=== PATIENT | male | born 1960 | race Caucasian/White ===

== ENCOUNTER 2017-11-30 01:48 | Inpatient (IN) | payer OTHER ==
[~2017-11-30] VITALS: Ht 170.2 cm; Wt 96.5 kg
[~2017-11-30 01:48] MED LIST: ABILIFY5 MG PO; ACTOS30 MG PO; ALLEGRA D; ALLEGRA-D 121 TABLET PO; AMARYL4 MG PO; ASPIRIN BUFFER325 MG PO; ASPIRIN81 M1 PO; ATIVAN0.5 MG PO; ATIVAN1 MG PO; ATORVASTATIN CA10 MG PO; AVANDARYL PO; AVANDIA4 MG PO; B12 HEALTH1000 MCG/1 PO; BAYER ASPIRIN325 M1 PO; BELVIQ10 MG PO; BYETTA5 MCG/0.02 SC; FERROUS SULFATE PO; GLUCOPHAGE1000 MG PO; HYTRIN10 MG PO; IRON325 M1 PO; IRON325 MG PO; JANUVIA100 MG PO; LANTUS 10100 UNITS/ SC; LANTUS100 UNIT/1 SQ; LEVEMIR FL100 UNITS/ SC; LISINOPRIL20 MG PO; LITE COAT ASPI325 M1 PO; METFORMIN HCL1000 MG PO; OXYCONTIN10 MG PO; PRILOSEC20 MG; PRILOSEC20 MG PO; PROPRANOLOL HCL80 M1 PO; PROPRANOLOL HCL80 MG PO; PROTONIX40 MG PO; PriLOSEC PO; TERAZOSIN HCL5 MG PO; VITAMIN B12 PO; VITAMIN B12-FO1 EACH PO; VYTORIN 10-401 EACH PO; VYTORIN 10/41 TABLET PO
[2017-11-30 02:22] LABS: HEMATOCRIT 38.7 % (38.0-50.0); HEMOGLOBIN 12.9 G/DL (12.5-16.6); MCH 29.3 PG (29.0-34.0); MCHC 33.3 G/DL (30.0-36.0); PLATELET COUNT 198 K/uL (156-360); RBC DIS.WIDTH-CV 13.4 % (11.8-14.6); RBC DIS.WIDTH-SD 43.1 % (39-53); WHITE BLOOD COUNT 10.9 K/uL (4.1-10.2)
[2017-11-30 02:30] LABS: CHLORIDE 106 mEq/L (99-109); POTASSIUM 4.4 mEq/L (3.7-5.4); SODIUM 139 mEq/L (136-147)
[2017-11-30 02:32] LABS: GLUCOSE 139 mg/dL (70-99)
[2017-11-30 02:36] LABS: CREATININE 1.3 mg/dL (0.6-1.3); GFR ESTIMATE (CALCULATED) > 59 mL/min/ (58.99-99999)
[2017-11-30 02:37] LABS: UREA NITROGEN (BUN) 22 mg/dL (9-23)
[2017-11-30 02:39] LABS: LIPASE 63 U/L (1.0-51.0)
[2017-11-30 02:44] LABS: TROP-I INTERPRETATION NEGATIVE; TROPONIN-I 0.01 ng/mL (0.0-0.30)
[2017-11-30 03:56] LABS: ALBUMIN 4.4 g/dL (3.2-4.8)
[2017-11-30 03:59] LABS: TOTAL PROTEIN 7.4 g/dL (6.4-8.3)
[2017-11-30 04:02] LABS: ALKALINE PHOSPHATASE 56 IU/L (3-129)
[2017-11-30 04:04] LABS: AST (GOT) 31 IU/L (2-34); DIRECT BILIRUBIN 0.7 mg/dL (0.0-0.3)
[2017-11-30 04:05] LABS: ALT (GPT) 26 IU/L (3-49)
[2017-11-30] MEDS ORDERED: XARELTO20 MG PO (04:09)
[2017-11-30] MEDS ORDERED: METOPROLOL SUCC50 MG PO (04:11)
[2017-11-30 04:29] LABS: BASE EXCESS -4.6 mEq/L (-3 to +3); CARBOXY HGB 1.5 % (0-5); COMMENTS - BLOOD GASES C+A+; DEVICE ROOM AIR; METHEMOGLOBIN 0.8 % (0-1.5); O2 SATURATION (CALCULATED) 99.1 % (95-99); PCO2 30 mm Hg (35-45); PO2 96 mm Hg (80-100); SITE RR; pH 7.41 (7.35-7.45)
[2017-11-30 04:37] LABS: MAGNESIUM 1.6 mg/dL (1.3-2.7)
[2017-11-30 05:35] VITALS: BP 123/90
[2017-11-30 06:35] LABS: APPEARANCE CLEAR ((CLEAR)); BILIRUBIN NEGATIVE; BLOOD NEGATIVE; COLOR YELLOW ((YELLOW)); GLUCOSE (STRIP) NEGATIVE; KETONES 20; LEUKOCYTES NEGATIVE; NITRITE NEGATIVE; PROTEIN (STRIP) NEGATIVE; SPECIFIC GRAVITY 1.014 (1.000-1.030); UCUL ADDED? NO; UROBILINOGEN 0.2 MG/DL (0.2-1.0)
[2017-11-30 06:44] VITALS: BP 123/82
[2017-11-30 07:38] VITALS: BP 106/74
[2017-11-30 10:32] LABS: TROP-I INTERPRETATION NEGATIVE; TROPONIN-I < 0.01 ng/mL (0.0-0.30)
[2017-11-30 11:42] VITALS: BP 113/60
[2017-11-30 20:45] VITALS: BP 140/90
[2017-12-01] VITALS (7 sets, daily range): BP systolic 98–158; BP diastolic 62–84
[2017-12-01 05:16] LABS: BASOPHIL (%) 0.3 % (0-1); EOSINOPHIL (%) 1.3 % (0-5); EOSINOPHIL COUNT 0.1 K/uL (0-0.3); HEMATOCRIT 35.6 % (38.0-50.0); HEMOGLOBIN 11.6 G/DL (12.5-16.6); IMMATURE GRANULOCYTE (%) 0.3 % (0.0-0.7); LYMPHOCYTE (%) 28.7 % (15-42); LYMPHOCYTE COUNT 1.7 K/uL (1.0-2.8); MCH 28.6 PG (29.0-34.0); MCHC 32.6 G/DL (30.0-36.0); MCV 87.9 FL (86-99); MONOCYTE (%) 7.2 % (3-12); MONOCYTE COUNT 0.4 K/uL (0-0.8); NEUTROPHIL (%) 62.2 % (45-76); NEUTROPHIL COUNT 3.7 K/uL (1.8-6.4); PLATELET COUNT 145 K/uL (156-360); RBC DIS.WIDTH-CV 13.4 % (11.8-14.6); RBC DIS.WIDTH-SD 43.5 % (39-53); RED BLOOD COUNT 4.05 M/uL (4.00-5.50)
[2017-12-01 05:46] LABS: ALBUMIN 3.6 G/DL (3.2-4.8); ALKALINE PHOSPHATASE 43 IU/L (3-129); ALT (GPT) 16 IU/L (3-49); AST (GOT) 16 IU/L (2-34); CHLORIDE 104 MEQ/L (99-109); GFR ESTIMATE (CALCULATED) > 59 mL/min/ (58.99-99999); GLUCOSE 112 mg/dL (70-99); LIPASE 53 U/L (1.0-51.0); MAGNESIUM 1.4 mg/dl (1.3-2.7); POTASSIUM 4.2 MEQ/L (3.7-5.4); SODIUM 137 MEQ/L (136-147); TOTAL BILIRUBIN 1.8 MG/DL (0.0-1.0); TRIGLYCERIDES 89 MG/DL (Normal: <150); UREA NITROGEN (BUN) 20 mg/dL (9-23)
[2017-12-02] VITALS (8 sets, daily range): BP systolic 110–162; BP diastolic 65–99
[2017-12-02 05:36] LABS: HEMATOCRIT 36.9 % (38.0-50.0); HEMOGLOBIN 11.9 G/DL (12.5-16.6); MCH 28.7 PG (29.0-34.0); MCHC 32.2 G/DL (30.0-36.0); MCV 88.9 FL (86-99); PLATELET COUNT 154 K/uL (156-360); RBC DIS.WIDTH-CV 13.2 % (11.8-14.6); RBC DIS.WIDTH-SD 43.6 % (39-53); RED BLOOD COUNT 4.15 M/uL (4.00-5.50); WHITE BLOOD COUNT 7.6 K/uL (4.1-10.2)
[2017-12-02 06:05] LABS: CHLORIDE 106 MEQ/L (99-109); CREATININE 1.1 MG/DL (0.6-1.3); GFR ESTIMATE (CALCULATED) > 59 mL/min/ (58.99-99999); GLUCOSE 123 mg/dL (70-99); MAGNESIUM 1.5 mg/dl (1.3-2.7); SODIUM 141 MEQ/L (136-147); UREA NITROGEN (BUN) 16 mg/dL (9-23)
[2017-12-02 10:27] LABS: HEMOGLOBIN A1c (GLYCOHEMOGLOB) 6.5 % (Below 5.7)
[2017-12-03 05:06] VITALS: BP 159/92
[2017-12-03 05:45] LABS: HEMATOCRIT 34.9 % (38.0-50.0); HEMOGLOBIN 11.2 G/DL (12.5-16.6); MCH 28.7 PG (29.0-34.0); MCHC 32.1 G/DL (30.0-36.0); MCV 89.5 FL (86-99); PLATELET COUNT 146 K/uL (156-360); RBC DIS.WIDTH-CV 13.5 % (11.8-14.6); RBC DIS.WIDTH-SD 43.8 % (39-53); WHITE BLOOD COUNT 6.1 K/uL (4.1-10.2)
[2017-12-03 06:35] LABS: CHLORIDE 106 MEQ/L (99-109); CREATININE 1.3 MG/DL (0.6-1.3); GFR ESTIMATE (CALCULATED) > 59 mL/min/ (58.99-99999); GLUCOSE 177 mg/dL (70-99); MAGNESIUM 1.6 mg/dl (1.3-2.7); SODIUM 140 MEQ/L (136-147); UREA NITROGEN (BUN) 22 mg/dL (9-23)
[2017-12-03 07:27] VITALS: BP 109/74
[2017-12-03 11:41] VITALS: BP 139/86
[2017-12-03] MEDS ORDERED: DILTIAZEM 24HR240 MG PO (14:03)
[2017-12-03] MEDS ORDERED: METOPROLOL SUC100 MG PO (14:03)
[2017-12-03] MEDS ORDERED: DIGOXIN125 MCG PO (14:03)
[2017-12-03 15:09] VITALS: BP 131/73
== END 2017-12-03 17:12 | disposition home or self-care (01) | DRG 309 ==
LOC: EME 01:48 → EXP 01:48 → EDOF 04:09 → ENRESERV 04:10 → 4EAST 05:00 → ENPENDDIS 12-03 → 4EAST 12-03 17:12
PROVIDERS: Hospitalist; Internal Medicine; Physician Assistant Medical
DX: I48.0 Paroxysmal atrial fibrillation (principal); N17.9 Acute kidney failure, unspecified; E87.3 Alkalosis; I11.0 Hypertensive heart disease with heart failure; I50.9 Heart failure, unspecified; E78.5 Hyperlipidemia, unspecified; E11.9 Type 2 diabetes mellitus without complications; K21.9 Gastro-esophageal reflux disease without esophagitis; N40.0 Benign prostatic hyperplasia without lower urinary tract symptoms; E66.9 Obesity, unspecified; F41.9 Anxiety disorder, unspecified; R62.50 Unspecified lack of expected normal physiological development in childhood; F79 Unspecified intellectual disabilities; R10.9 Unspecified abdominal pain; Z79.4 Long term (current) use of insulin; Z79.82 Long term (current) use of aspirin; Z88.2 Allergy status to sulfonamides; Z79.01 Long term (current) use of anticoagulants; Z68.36 Body mass index [BMI] 36.0-36.9, adult
CPT/HCPCS: 36600; 71045; 74176; 80048; 80053; 80076; 81003; 82330; 82803; 82948; 83036; 83690; 83735; 84478; 84484; 85025; 85027; 93005; 99281; 99285; C9113; J1160; J1815; J1885; J7040; J7050; J7120

== ENCOUNTER 2017-12-06 10:14 | Emergency (ER) | payer OTHER ==
[~2017-12-06] VITALS: Ht 175.3 cm; Wt 98.0 kg
[~2017-12-06 10:14] MED LIST changes: +DIGOXIN125 MCG PO; +DILTIAZEM 24HR240 MG PO; +METOPROLOL SUC100 MG PO; +METOPROLOL SUCC50 MG PO; +XARELTO20 MG PO
[2017-12-06 10:43] LABS: BASOPHIL (%) 0.4 % (0-1); EOSINOPHIL (%) 0.5 % (0-5); HEMATOCRIT 37.6 % (38.0-50.0); HEMOGLOBIN 12.7 G/DL (12.5-16.6); IMMATURE GRANULOCYTE (%) 0.4 % (0.0-0.7); LYMPHOCYTE (%) 18.7 % (15-42); LYMPHOCYTE COUNT 1.6 K/uL (1.0-2.8); MCH 29.5 PG (29.0-34.0); MCHC 33.8 G/DL (30.0-36.0); MCV 87.2 FL (86-99); MONOCYTE (%) 7.3 % (3-12); MONOCYTE COUNT 0.6 K/uL (0-0.8); NEUTROPHIL (%) 72.7 % (45-76); NEUTROPHIL COUNT 6.2 K/uL (1.8-6.4); RBC DIS.WIDTH-CV 13.3 % (11.8-14.6); RBC DIS.WIDTH-SD 42.4 % (39-53); RED BLOOD COUNT 4.31 M/uL (4.00-5.50); WHITE BLOOD COUNT 8.6 K/uL (4.1-10.2)
[2017-12-06 10:44] LABS: PLATELET COUNT 200 K/uL (156-360)
[2017-12-06 10:50] LABS: INTER. NORMALIZED RATIO 2.3
[2017-12-06 10:52] LABS: ALBUMIN 4.1 g/dL (3.2-4.8)
[2017-12-06 10:53] LABS: CHLORIDE 105 mEq/L (99-109); PTT 37.9 SEC (25-37); SODIUM 138 mEq/L (136-147)
[2017-12-06 10:55] LABS: GLUCOSE 280 mg/dL (70-99)
[2017-12-06 10:58] LABS: ALKALINE PHOSPHATASE 56 IU/L (3-129)
[2017-12-06 10:59] LABS: CREATININE 1.4 mg/dL (0.6-1.3); GFR ESTIMATE (CALCULATED) 55 mL/min/ (58.99-99999)
[2017-12-06 11:00] LABS: AST (GOT) 21 IU/L (2-34); DIRECT BILIRUBIN 0.7 mg/dL (0.0-0.3); UREA NITROGEN (BUN) 21 mg/dL (9-23)
[2017-12-06 11:02] LABS: ALT (GPT) 22 IU/L (3-49); LIPASE 51 U/L (1.0-51.0)
[2017-12-06 11:04] LABS: TROP-I INTERPRETATION NEGATIVE; TROPONIN-I < 0.01 ng/mL (0.0-0.30)
[2017-12-06 12:09] LABS: APPEARANCE CLEAR ((CLEAR)); BILIRUBIN NEGATIVE; BLOOD NEGATIVE; COLOR YELLOW ((YELLOW)); GLUCOSE (STRIP) >=500; KETONES 5; LEUKOCYTES SMALL; NITRITE NEGATIVE; PROTEIN (STRIP) NEGATIVE; SPECIFIC GRAVITY 1.017 (1.000-1.030); UROBILINOGEN 0.2 MG/DL (0.2-1.0)
[2017-12-06 12:18] LABS: BACTERIA NONE SEEN /HPF; EPITHELIAL CELLS NONE SEEN /HPF; MUCUS 2+ /LPF; RED BLOOD CELLS NONE SEEN /HPF (0-5); UCUL ADDED? NO; WHITE BLOOD CELLS 0-5 /HPF (0-5)
[2017-12-06 16:31] VITALS: BP 102/59
== END 2017-12-06 16:34 | disposition home or self-care (01) ==
LOC: EME 10:14
PROVIDERS: Emergency Medicine
PROC: 5A2204Z Restoration of Cardiac Rhythm, Single (ICD-10-PCS; principal; 2017-12-06)
DX: I48.91 Unspecified atrial fibrillation (principal); R00.1 Bradycardia, unspecified; R94.31 Abnormal electrocardiogram [ECG] [EKG]; I10 Essential (primary) hypertension; E78.5 Hyperlipidemia, unspecified; F41.9 Anxiety disorder, unspecified; Z79.01 Long term (current) use of anticoagulants; Z79.84 Long term (current) use of oral hypoglycemic drugs; Z86.79 Personal history of other diseases of the circulatory system; Z87.19 Personal history of other diseases of the digestive system; Z86.73 Personal history of transient ischemic attack (TIA), and cerebral infarction without residual deficits; Z88.2 Allergy status to sulfonamides; Z88.8 Allergy status to other drugs, medicaments and biological substances
CPT/HCPCS: 70450; 80048; 80076; 81003; 83605; 83690; 83880; 84484; 85025; 85610; 85730; 90839; 93005; 99281; 99285; J1160; J2250; J3010; J7030

== ENCOUNTER 2017-12-08 17:32 | Inpatient (IN) | payer OTHER ==
[~2017-12-08] VITALS: Ht 170.2 cm; Wt 95.0 kg
[2017-12-08 18:19] LABS: HEMATOCRIT 36.2 % (38.0-50.0); HEMOGLOBIN 12.3 G/DL (12.5-16.6); MCH 29.4 PG (29.0-34.0); MCV 86.6 FL (86-99); PLATELET COUNT 181 K/uL (156-360); RBC DIS.WIDTH-CV 13.3 % (11.8-14.6); RBC DIS.WIDTH-SD 41.6 % (39-53); RED BLOOD COUNT 4.18 M/uL (4.00-5.50); WHITE BLOOD COUNT 8.1 K/uL (4.1-10.2)
[2017-12-08 18:30] LABS: CHLORIDE 109 mEq/L (99-109); POTASSIUM 4.1 mEq/L (3.7-5.4); SODIUM 141 mEq/L (136-147)
[2017-12-08 18:31] LABS: GLUCOSE 155 mg/dL (70-99)
[2017-12-08 18:35] LABS: CREATININE 1.1 mg/dL (0.6-1.3); GFR ESTIMATE (CALCULATED) > 59 mL/min/ (58.99-99999)
[2017-12-08 18:36] LABS: UREA NITROGEN (BUN) 15 mg/dL (9-23)
[2017-12-08 18:39] LABS: TROP-I INTERPRETATION NEGATIVE; TROPONIN-I < 0.01 ng/mL (0.0-0.30)
[2017-12-08] MEDS ORDERED: AMIODARONE HCL200 MG PO (20:42)
[2017-12-08] MEDS ORDERED: CARTIA XT240 MG PO (22:57)
[2017-12-08] MEDS ORDERED: METOPROLOL SUCC50 MG PO (22:57)
[2017-12-08] MEDS ORDERED: METFORMIN HCL1000 MG PO (22:57)
[2017-12-08] MEDS ORDERED: GLIMEPIRIDE4 MG PO (22:57)
[2017-12-08] MEDS ORDERED: PIOGLITAZONE HC15 MG PO (22:58)
[2017-12-09 01:30] VITALS: BP 136/98
[2017-12-09 05:23] LABS: TROP-I INTERPRETATION NEGATIVE; TROPONIN-I 0.01 ng/mL (0.0-0.30)
[2017-12-09 07:43] VITALS: BP 149/95
[2017-12-09 11:49] VITALS: BP 97/69
[2017-12-09 12:05] LABS: TROP-I INTERPRETATION NEGATIVE; TROPONIN-I 0.02 ng/mL (0.0-0.30)
[2017-12-09 15:23] VITALS: BP 108/67
[2017-12-09 20:13] VITALS: BP 115/74
[2017-12-10 00:32] VITALS: BP 127/81
[2017-12-10 04:21] VITALS: BP 135/99
[2017-12-10 05:25] LABS: HEMATOCRIT 39.9 % (38.0-50.0); HEMOGLOBIN 13.2 G/DL (12.5-16.6); MCH 28.9 PG (29.0-34.0); MCHC 33.1 G/DL (30.0-36.0); MCV 87.3 FL (86-99); PLATELET COUNT 194 K/uL (156-360); RBC DIS.WIDTH-CV 13.5 % (11.8-14.6); RBC DIS.WIDTH-SD 43.1 % (39-53); RED BLOOD COUNT 4.57 M/uL (4.00-5.50); WHITE BLOOD COUNT 6.7 K/uL (4.1-10.2)
[2017-12-10 05:56] LABS: ALBUMIN 3.8 G/DL (3.2-4.8); ALKALINE PHOSPHATASE 43 IU/L (3-129); ALT (GPT) 17 IU/L (3-49); AST (GOT) 15 IU/L (2-34); CHLORIDE 107 MEQ/L (99-109); GFR ESTIMATE (CALCULATED) > 59 mL/min/ (58.99-99999); GLUCOSE 149 mg/dL (70-99); MAGNESIUM 1.7 mg/dl (1.3-2.7); POTASSIUM 3.9 MEQ/L (3.7-5.4); SODIUM 141 MEQ/L (136-147); TOTAL BILIRUBIN 1.6 MG/DL (0.0-1.0); TOTAL PROTEIN 6.1 G/DL (6.4-8.3); UREA NITROGEN (BUN) 13 mg/dL (9-23)
[2017-12-10 07:35] VITALS: BP 150/95
[2017-12-10 11:14] VITALS: BP 109/77
[2017-12-10 16:43] VITALS: BP 128/71
[2017-12-10 21:27] VITALS: BP 120/75
[2017-12-11 00:30] VITALS: BP 132/71
[2017-12-11 04:30] VITALS: BP 129/70
[2017-12-11 05:52] LABS: BASOPHIL (%) 0.4 % (0-1); EOSINOPHIL (%) 1.7 % (0-5); EOSINOPHIL COUNT 0.1 K/uL (0-0.3); HEMATOCRIT 38.3 % (38.0-50.0); HEMOGLOBIN 12.4 G/DL (12.5-16.6); IMMATURE GRANULOCYTE (%) 0.3 % (0.0-0.7); LYMPHOCYTE (%) 28.3 % (15-42); MCH 28.7 PG (29.0-34.0); MCHC 32.4 G/DL (30.0-36.0); MCV 88.7 FL (86-99); MONOCYTE (%) 9.9 % (3-12); MONOCYTE COUNT 0.7 K/uL (0-0.8); NEUTROPHIL (%) 59.4 % (45-76); NEUTROPHIL COUNT 4.1 K/uL (1.8-6.4); PLATELET COUNT 183 K/uL (156-360); RBC DIS.WIDTH-CV 13.6 % (11.8-14.6); RBC DIS.WIDTH-SD 44.2 % (39-53); RED BLOOD COUNT 4.32 M/uL (4.00-5.50)
[2017-12-11 06:06] LABS: CHLORIDE 105 MEQ/L (99-109); CREATININE 1.1 MG/DL (0.6-1.3); GFR ESTIMATE (CALCULATED) > 59 mL/min/ (58.99-99999); GLUCOSE 160 mg/dL (70-99); MAGNESIUM 1.7 mg/dl (1.3-2.7); POTASSIUM 4.1 MEQ/L (3.7-5.4); SODIUM 140 MEQ/L (136-147); UREA NITROGEN (BUN) 18 mg/dL (9-23)
[2017-12-11 06:12] LABS: ALBUMIN 3.4 G/DL (3.2-4.8); ALKALINE PHOSPHATASE 46 IU/L (3-129); ALT (GPT) 15 IU/L (3-49); AST (GOT) 14 IU/L (2-34); CHLORIDE 104 MEQ/L (99-109); CREATININE 1.1 MG/DL (0.6-1.3); GFR ESTIMATE (CALCULATED) > 59 mL/min/ (58.99-99999); GLUCOSE 157 mg/dL (70-99); POTASSIUM 4.1 MEQ/L (3.7-5.4); SODIUM 140 MEQ/L (136-147); TOTAL PROTEIN 5.7 G/DL (6.4-8.3); UREA NITROGEN (BUN) 18 mg/dL (9-23)
[2017-12-11 06:17] LABS: TOTAL BILIRUBIN 1.2 MG/DL (0.0-1.0)
[2017-12-11 06:48] LABS: DIGOXIN 0.5 ng/mL (0.8-2.0)
[2017-12-11 07:15] VITALS: BP 150/91
[2017-12-11 11:35] VITALS: BP 123/71
[2017-12-11 17:14] VITALS: BP 133/79
[2017-12-11 21:00] VITALS: BP 133/71
[2017-12-12 01:30] VITALS: BP 131/91
[2017-12-12 05:20] VITALS: BP 130/88
[2017-12-12 07:50] LABS: DIGOXIN 0.5 ng/mL (0.8-2.0)
[2017-12-12 07:51] VITALS: BP 126/79
[2017-12-12 09:11] LABS: CHLORIDE 100 MEQ/L (99-109); CREATININE 1.2 MG/DL (0.6-1.3); GFR ESTIMATE (CALCULATED) > 59 mL/min/ (58.99-99999); MAGNESIUM 1.9 mg/dl (1.3-2.7); POTASSIUM 4.5 MEQ/L (3.7-5.4); SODIUM 137 MEQ/L (136-147); UREA NITROGEN (BUN) 26 mg/dL (9-23)
[2017-12-12 09:18] LABS: GLUCOSE 236 mg/dL (70-99)
[2017-12-12] MEDS ORDERED: DIGOXIN250 MCG PO (10:49)
[2017-12-12] MEDS ORDERED: TRAZODONE HCL50 MG PO (10:50)
[2017-12-12] MEDS ORDERED: MAG-OXIDE400 MG PO (10:50)
[2017-12-12] MEDS ORDERED: DILTIAZEM 24HR240 MG PO (10:50)
[2017-12-12 11:08] VITALS: BP 103/62
== END 2017-12-12 15:47 | disposition home health service (06) | DRG 310 ==
LOC: EME 17:32 → EDOF 12-09 00:15 → 4EAST 12-09 00:15 → EDOF 12-09 00:15 → ENRESERV 12-09 00:19 → 4EAST 12-09 01:30 → ENPENDDIS 12-12 → 4EAST 12-12 15:47
PROVIDERS: Family Medicine; Hospitalist; Physician Assistant Medical
DX: I48.1 Persistent atrial fibrillation (principal); G47.00 Insomnia, unspecified; F79 Unspecified intellectual disabilities; R62.50 Unspecified lack of expected normal physiological development in childhood; I10 Essential (primary) hypertension; F41.9 Anxiety disorder, unspecified; E78.5 Hyperlipidemia, unspecified; E11.9 Type 2 diabetes mellitus without complications; K21.9 Gastro-esophageal reflux disease without esophagitis; N40.0 Benign prostatic hyperplasia without lower urinary tract symptoms; Z86.73 Personal history of transient ischemic attack (TIA), and cerebral infarction without residual deficits; Z88.2 Allergy status to sulfonamides; Z79.4 Long term (current) use of insulin; Z79.01 Long term (current) use of anticoagulants
CPT/HCPCS: 71045; 80048; 80053; 80162; 82948; 83735; 84484; 85025; 85027; 93005; 99281; 99285; G0378; J1160; J7030; J7050

== ENCOUNTER 2017-12-20 21:55 | Inpatient (IN) | payer OTHER ==
[~2017-12-20] VITALS: Ht 170.2 cm; Wt 93.7 kg
[~2017-12-20 21:55] MED LIST changes: +AMIODARONE HCL200 MG PO; +CARTIA XT240 MG PO; +DIGOXIN250 MCG PO; +GLIMEPIRIDE4 MG PO; +MAG-OXIDE400 MG PO; +PIOGLITAZONE HC15 MG PO; +TRAZODONE HCL50 MG PO
[2017-12-20 22:39] LABS: INTER. NORMALIZED RATIO 2.3
[2017-12-20 22:42] LABS: PTT 37.8 SEC (25-37)
[2017-12-20 22:43] LABS: HEMATOCRIT 35.9 % (38.0-50.0); HEMOGLOBIN 12.2 G/DL (12.5-16.6); MCH 29.5 PG (29.0-34.0); MCV 86.7 FL (86-99); PLATELET COUNT 175 K/uL (156-360); RBC DIS.WIDTH-CV 13.2 % (11.8-14.6); RBC DIS.WIDTH-SD 41.4 % (39-53); RED BLOOD COUNT 4.14 M/uL (4.00-5.50); WHITE BLOOD COUNT 7.5 K/uL (4.1-10.2)
[2017-12-20 22:52] LABS: CHLORIDE 105 mEq/L (99-109); POTASSIUM 4.3 mEq/L (3.7-5.4); SODIUM 138 mEq/L (136-147)
[2017-12-20 22:56] LABS: TOTAL BILIRUBIN 1.6 mg/dL (0.0-1.0)
[2017-12-20 22:59] LABS: AST (GOT) 26 IU/L (2-34)
[2017-12-20 23:01] LABS: TROP-I INTERPRETATION NEGATIVE; TROPONIN-I 0.04 ng/mL (0.0-0.30)
[2017-12-20 23:03] LABS: SERUM ETHYL ALCOHOL < 10 mg/dL
[2017-12-20 23:05] LABS: DIGOXIN 1.1 ng/mL (0.8-2.0)
[2017-12-20 23:09] LABS: ALBUMIN 4.2 g/dL (3.2-4.8)
[2017-12-20 23:11] LABS: GLUCOSE 170 mg/dL (70-99)
[2017-12-20 23:12] LABS: TOTAL PROTEIN 6.7 g/dL (6.4-8.3)
[2017-12-20 23:15] LABS: ALKALINE PHOSPHATASE 69 IU/L (3-129); GFR ESTIMATE (CALCULATED) > 59 mL/min/ (58.99-99999)
[2017-12-20 23:16] LABS: UREA NITROGEN (BUN) 19 mg/dL (9-23)
[2017-12-20 23:18] LABS: ALT (GPT) 26 IU/L (3-49); LIPASE 61 U/L (1.0-51.0)
[2017-12-21 03:13] LABS: APPEARANCE CLEAR ((CLEAR)); BILIRUBIN NEGATIVE; BLOOD NEGATIVE; COLOR STRAW ((YELLOW)); GLUCOSE (STRIP) 50; KETONES NEGATIVE; LEUKOCYTES TRACE; NITRITE NEGATIVE; PROTEIN (STRIP) NEGATIVE; SPECIFIC GRAVITY 1.006 (1.000-1.030); UROBILINOGEN 0.2 MG/DL (0.2-1.0)
[2017-12-21 03:18] LABS: BACTERIA NONE SEEN /HPF; EPITHELIAL CELLS NONE SEEN /HPF; MUCUS TRACE /LPF; RED BLOOD CELLS 0-5 /HPF (0-5); UCUL ADDED? NO; WHITE BLOOD CELLS 0-5 /HPF (0-5)
[2017-12-21 03:21] LABS: AMPHETAMINE NEGATIVE (500 ng/mL); BARBITURATES NEGATIVE (200 ng/mL); BENZODIAZEPINES NEGATIVE (150 ng/mL); BUPRENORPHINE NEGATIVE (10 ng/mL); COCAINE NEGATIVE (150 ng/mL); METHADONE NEGATIVE (200 ng/mL); METHAMPHETAMINE NEGATIVE (500 ng/mL); OPIATES (MORPHINE) NEGATIVE (100 ng/mL); OXYCODONE NEGATIVE (100 ng/mL); PHENCYCLIDINE NEGATIVE (25 ng/mL); PROPOXYPHENE NEGATIVE (300 ng/mL); THC CANNABINOIDS NEGATIVE (50 ng/mL); TRICYCLIC ANTIDEPRESSANTS NEGATIVE (300 ng/mL)
[2017-12-21] MEDS ORDERED: TRAZODONE HCL100 MG PO (12:43)
[2017-12-21] MEDS ORDERED: METOPROLOL SUC100 MG PO (12:44)
[2017-12-21] MEDS ORDERED: SEROQUEL12.5 MG PO (12:45)
[2017-12-21] MEDS ORDERED: CARTIA XT240 MG PO (12:46)
[2017-12-22 14:01] VITALS: BP 173/87
[2017-12-22 15:18] VITALS: BP 112/69
[2017-12-23 09:02] VITALS: BP 116/66
[2017-12-23 16:31] VITALS: BP 144/74
[2017-12-24 07:47] VITALS: BP 125/83
[2017-12-24 16:12] VITALS: BP 127/84
[2017-12-24 21:00] VITALS: BP 119/77
[2017-12-25 07:54] VITALS: BP 131/71
[2017-12-25 16:14] VITALS: BP 122/57
[2017-12-26 07:56] VITALS: BP 118/71
[2017-12-26 16:05] VITALS: BP 102/58
[2017-12-27 08:56] VITALS: BP 147/61
[2017-12-27] MEDS ORDERED: QUETIAPINE FUM200 MG PO (10:50)
[2017-12-27 16:40] VITALS: BP 111/57
[2017-12-28 08:11] VITALS: BP 114/57
== END 2017-12-28 12:42 | disposition home or self-care (01) | DRG 885 ==
LOC: EME 21:55 → EDOF 12-22 12:14 → 1WEST 12-22 12:14 → ENRESERV 12-22 13:10 → 1WEST 12-22 13:50
PROVIDERS: Emergency Medicine; Psychiatry & Neurology Psychiatry
DX: F31.11 Bipolar disorder, current episode manic without psychotic features, mild (principal); E11.9 Type 2 diabetes mellitus without complications; E78.5 Hyperlipidemia, unspecified; I10 Essential (primary) hypertension; I48.2 Chronic atrial fibrillation; F71 Moderate intellectual disabilities; F22 Delusional disorders; F41.9 Anxiety disorder, unspecified; G47.9 Sleep disorder, unspecified; G47.00 Insomnia, unspecified; F63.81 Intermittent explosive disorder; E66.3 Overweight; Z79.01 Long term (current) use of anticoagulants; Z79.84 Long term (current) use of oral hypoglycemic drugs; Z73.6 Limitation of activities due to disability; Z68.32 Body mass index [BMI] 32.0-32.9, adult; Z81.8 Family history of other mental and behavioral disorders
CPT/HCPCS: 70450; 71045; 80053; 80162; 81003; 82948; 83690; 84484; 85027; 85610; 85730; 87086; 90837; 93005; 97150 GO; 97166 GO; 99281; 99285; G0480